=== PATIENT | female | born 2000 | race Caucasian/White ===

== ENCOUNTER 2020-07-28 17:38 | Emergency (ER) | payer OTHER ==
[~2020-07-28] VITALS: Ht 160 cm; Wt 43.8 kg
[2020-07-28 17:40] VITALS: BP 131/72
== END 2020-07-28 18:45 | disposition home or self-care (01) ==
LOC: ED 17:50
DX: R21 Rash and other nonspecific skin eruption (principal); Z00.00 Encounter for general adult medical examination without abnormal findings
CPT/HCPCS: 99281